=== PATIENT | male | born 1960 | race Caucasian/White ===

== ENCOUNTER 2019-10-26 15:29 | Outpatient (CLI) | payer OTHER, SELFPAY ==
--- NOTE | ~2019-10-26 | MR_ITS ---
EXAMINATION: MR lumbar spine wo con DATE: 10/26/2019 16:05 INDICATION: Lumbar radiculopathy with low back pain and left leg pain and weakness. TECHNIQUE: Magnetic resonance imaging (MRI) of the lumbar spine was performed without intravenous con trast. Sequences included sagittal T2-weighted FSE, sagittal T2-weighted FS FSE, sagittal T1-weighted FSE, and axial T2-weighted FSE. COMPARISON: None FINDINGS: 5 mm retrolisthesis L5 on S1. Vertebral body heights are normal. T1 hyperintense hemangioma at L3. Ot herwise normal marrow signal. Disc desiccation and mild disc height loss at T12-L1 and L1-L2. Mild di sc desiccation with annular fissure but without significant disc height loss at L5-S1. The conus medu llaris terminates at L1. There is normal signal in the caudal spinal cord. Paravertebral soft tissues are unremarkable. The following disc levels are specifically discussed: T12-L1: Small central disc protrusion. There is mild bilateral facet joint osteoarthritis. There is n o neural foraminal stenosis. There is minimal central canal stenosis. L1-L2: Small right foraminal disc protrusion. There is altered left and mild to moderate right facet joint osteoarthritis. There is mild right and minimal left neural foraminal stenosis. There is no naomi tral canal stenosis. L2-L3: The disc does not extend beyond the endplate margin. There is mild left and minimal right face t joint osteoarthritis. There is mild bilateral neural foraminal stenosis. There is no central canal stenosis. L3-L4: The disc does not extend beyond the endplate margin. There is hypertrophy of the ligamentum fl avum. There is mild left and moderate right facet joint osteoarthritis. There is mild bilateral neura l foraminal stenosis. There is mild central canal stenosis. L4-L5: The disc does not extend beyond the endplate margin. There is hypertrophy of the ligamentum fl avum. There is severe bilateral facet joint osteoarthritis. There is moderate bilateral neural forami nal stenosis. There is mild central canal stenosis as well as mild narrowing of the left and right la teral recesses. L5-S1: Central to left foraminal zone disc protrusion. There is mild left and mild to moderate right facet joint osteoarthritis. There is mild to moderate right and moderate left neural foraminal stenos is. There is no central canal stenosis. IMPRESSION: 1. Mild to moderate lumbar spondylosis. Reviewed, dictated and finalized at location A.
== END 2019-10-26 15:30 ==
PROVIDERS: Visit Provider Chiropractor
DX: M47.26 Other spondylosis with radiculopathy, lumbar region (principal)
CPT/HCPCS: 72148

== ENCOUNTER 2022-03-01 13:00 | Outpatient (CLI) | payer OTHER, SELFPAY ==
--- NOTE | ~2022-03-01 | CT_ITS ---
EXAMINATION: CT abdomen wo/w con INDICATION: Adrenal cortical hormone abnormality TECHNIQUE: Computed tomographic images of the abdomen were obtained prior to then following the admin istration of 100 cc of Omnipaque 350 intravenous contrast. The dose-length product (DLP) was 3515.38 mGy-cm. Automated exposure control and iterative reconstruction technique were employed. COMPARISON: None available FINDINGS: Minimal dependent atelectasis is present in the lung bases. The heart size is normal. There are changes of prior cardiac surgery. Mild bilateral gynecomastia is noted. The liver, spleen, pancr eas, and gallbladder are normal. No adrenal mass is identified. There is a 3 mm nonobstructing stone of the left kidney. There is a 10 mm stone in the proximal left ureter causing moderate hydroureteron ephrosis. The right kidney is unremarkable. There are no pathologically enlarged abdominal lymph node s. There is no free intraperitoneal gas or evidence of bowel obstruction. There is moderate lumbar sp ondylosis. IMPRESSION: 1. 10 mm obstructing stone in the left proximal ureter causing moderate hydroureteronephrosis. Urolog ic evaluation is recommended. 2. No adrenal mass identified. 3. Nonobstructing left nephrolithiasis. These findings and recommendations were discussed with Violeta in the office of Dr. Teresa Ambriz at 11 20 hours on 03/04/2022. Reviewed, dictated and finalized at location L. [employer] IMPRESSION: 1. 10 mm obstructing stone in the left proximal ureter causing moderate hydrour eteronephrosis. Urologic evaluation is recommended. 2. No adrenal mass identified. 3. Nonobstructing left nephrolithiasis. These findings and recommendations were discussed with Violeta in the office of Dr. Teresa Ambriz at 1120 hours on 03/04/2022.
--- NOTE | ~2022-03-01 | MR_ITS ---
MRI of the brain Clinical History: Abnormal pituitary function test Technique: Axial and sagittal T1-weighted images were acquired. These were followed by axial T2-weigh simón, diffusion weighted, gradient, and FLAIR images. Thin cut coronal and sagittal T1-weighted imagin g was performed through the sella turcica. Following intravenous administration of 20 cc MultiHance g adolinium, T1-weighted fat-sat imaging was performed through the brain in the axial and coronal plane s. Thin cut coronal dynamic T1-weighted postcontrast imaging was also performed through the sella tur cica in the coronal and sagittal planes. Findings: No acute infarct, intracranial hemorrhage, or mass lesion. Minimal chronic white matter danae nges noted in the periventricular white matter bilaterally. Ventricles and subarachnoid spaces are unremarkable. Orbits are unremarkable. Paranasal sinuses and m astoids are clear. Major intracranial flow voids are intact. Sagittal midline structures are intact. No abnormality of the pituitary gland evident. No sellar/supr asellar mass. IMPRESSION: No significant abnormality seen. No pituitary lesion or sellar/suprasellar mass identified. Reviewed, dictated and finalized at location M. [employer]
[2022-03-01 14:33] LABS: Estimated Glomerular Filt Rate > 60
== END 2022-03-01 13:01 | disposition home or self-care (01) ==
PROVIDERS: Visit Provider Internal Medicine Endocrinology, Diabetes & Metabolism
DX: R89.1 Abnormal level of hormones in specimens from other organs, systems and tissues (principal); N20.0 Calculus of kidney
CPT/HCPCS: 70553; 74170; A9577; Q9967

== ENCOUNTER 2022-04-21 15:37 | Outpatient (CLI) | payer OTHER, SELFPAY ==
--- NOTE | ~2022-04-21 | US_ITS ---
EXAMINATION: US renal BI DATE: 04/21/2022 16:10 INDICATION: KIDNEY STONE TECHNIQUE: Multiple grayscale and Doppler ultrasound images of the kidneys were obtained. COMPARISON: CT 03/01/22. FINDINGS: The right kidney measures 12.8 x 7.6 x 7.0 cm. The left kidney measures 12.6 x 7.4 x 5.9 cm. The kidn eys demonstrate normal parenchymal echogenicity. 3 mm punctate focus in the left inferior pole, likel y corresponding to one of the two stones detected in the prior CT. There is no hydronephrosis. The bl adder is mildly thickened, with normal bilateral jets. IMPRESSION: Mild bladder wall thickening, possibly due to outlet compromise. Left nephrolithiasis. Otherwise unr emarkable renal sonogram findings. Reviewed, dictated and finalized at location K. [employer] IMPRESSION: Mild bladder wall thickening, possibly due to outlet compromise. Left nephrolit hiasis. Otherwise unremarkable renal sonogram findings.
== END 2022-04-21 15:38 | disposition home or self-care (01) ==
PROVIDERS: Visit Provider Urology
DX: N20.0 Calculus of kidney (principal)
CPT/HCPCS: 76775

== ENCOUNTER 2022-07-13 18:59 | Emergency (ER) | payer OTHER, SELFPAY ==
[2022-07-13] VITALS (16 sets, daily range): BP systolic 119–176; BP diastolic 66–80; PULSE 89–102; RESP 9–18; TEMP 36.8; O2SAT 96–100
[2022-07-13 20:34] LABS: Glucose Point of Care 310 mg/dl (65-105)
[2022-07-13 20:35] LABS: Basophils Percent Auto 0.3 % (0.2-1.2); Eosinophils Absolute Auto 0.1 K/mm3 (0-0.3); Eosinophils Percent Auto 0.9 % (0-4.4); Hemoglobin 12.2 g/dL (14.0-18.0); Immature Granulocyte Absolute 0.02 K/mm3 (0.00-0.031); Immature Granulocyte Percent A 0.3 % (0-0.5); Lymphocytes Absolute Auto 2.12 K/mm3 (0.9-3.2); Lymphocytes Percent Auto 28.5 % (18.3-44.2); Mean Corpuscular Hemoglobin 29.5 pg (26-34); Mean Corpuscular Volume 89.4 fl (80-100); Mean Platelet Volume 9.2 fl (7.4-10.4); Monocytes Absolute Auto 0.7 K/mm3 (0.1-0.6); Monocytes Percent Auto 9.5 % (2.6-8.5); Neutrophils Absolute Auto 4.5 K/mm3 (1.3-6.7); Neutrophils Percent Auto 60.5 % (45.5-73.1); Platelet Count Result 215 k/mm3 (150-375); Red Blood Count 4.14 M/mm3 (4.6-6.20); Red Cell Distribution Width 14.2 % (11.5-14.5); White Blood Count 7.5 K/mm3 (4.5-10.0)
[2022-07-13] MEDS: CLINDAMYCIN 600 MG/D5W 50 ML 600 MG/50 ML PIGGYBACK 100 MG IVPB (20:44)
[2022-07-13 20:50] LABS: Alanine Aminotransferase 28 U/L (6-50); Albumin Level 2.5 g/dL (3.5-5.1); Alkaline Phosphatase 69 U/L (38-126); Anion Gap 7 mmol/L (8-16); Aspartate Amino Transferase 39 U/L (17-59); Bilirubin,Total 0.3 mg/dL (0.2-1.3); Blood Urea Nitrogen 21 mg/dL (9-20); Calcium 6.4 mg/dL (8.4-10.2); Carbon Dioxide 18 mmol/L (22-30); Chloride 114 mmol/L (98-107); Estimated CRCL calculation 118 ml/min; Estimated Glomerular Filt Rate > 60; Glucose 217 mg/dL (65-110); Potassium 2.6 mmol/L (3.4-5.0); Sodium 139 mmol/L (137-145)
[2022-07-13] MEDS: POTASSIUM CHLORIDE 20 MEQ PACKET (FOR LIQUID) 40 MEQ PO (20:57)
--- NOTE | 2022-07-13 21:03 | ED.GENADULT ---
HPI - General Adult General Chief complaint: Skin/Abscess/Foreign Body Stated complaint: spider bite Time Seen by Provider: 07/13/22 19:54 History of Present Illness HPI narrative: 61-year-old male presented to the emergency department for evaluation of a wound to the right lower leg that he states has been worsening over the past 2 days. Patient does have a prior history of cellulitis. Patient is not currently taking any antibiotics. Denies any associated nausea vomiting diarrhea fevers weakness or shortness of breath. Related Data Allergies Allergy/AdvReac Type Severity Reaction Status Date / Time No Known Allergies Allergy Mild Verified 07/13/22 19:04 Review of Systems Review of Systems: All systems reviewed & are unremarkable except as noted in HPI and below Exam Narrative: APPEARANCE: Well appearing, no pain, no distress, well-nourished. HEAD: normocephalic, atraumatic. EYES: PERRLA/EOMI, conjunctivae clear. NOSE: Normal no drainage RESPIRATORY: Airway patent, respirations nonlabored. Clear to auscultation bilaterally, no rales, rhonchi, wheezing. CARDIOVASCULAR: Regular rate and rhythm without murmurs rubs or gallops. ABDOMINAL: Soft, nontender, nondistended, normal bowel sounds MUSCULOSKELETAL: Moves all extremities. Strength/ROM intact, No edema, No calf tenderness. NEURO: Alert. Cranial nerves II through XII intact. Good gait. Good coordination SKIN: Erythema of the right lower extremity consistent with cellulitis, no abscess, no purulent discharge. Course Course Emergency Course: [age]-year-old male presented to the ED for evaluation of lower extremity infection. Rash is consistent with cellulitis. Patient was started on IV clindamycin in the emergency department. Patient was also provided clindamycin for home. Patient potassium was low so he was treated with 40 mEq of p.o. potassium and 20 mEq of IV potassium. Patient was updated on the plan for treatment and on reasons to return to the emergency department. All questions and concerns were addressed and patient was comfortable to plan for discharge and close follow-up. At time of signout patient is receiving his IV potassium. Vital Signs Vital signs: Vital Signs Temperature 98.2 F 07/13/22 19:01 Pulse Rate 102 H 07/13/22 19:01 Respiratory Rate 18 07/13/22 19:01 Blood Pressure 176/80 H 07/13/22 19:01 Pulse Oximetry 99 05/07/23 19:01 Temperature 98.2 F 07/13/22 19:01 Pulse Rate 89 07/13/22 23:21 Respiratory Rate 14 07/13/22 23:21 Blood Pressure 119/66 07/13/22 23:21 Pulse Oximetry 98 07/13/22 23:21 Medical Decision Making Vital Signs Vital Signs: Vital Signs Temperature 98.2 F 07/13/22 19:01 Pulse Rate 102 H 07/13/22 19:01 Respiratory Rate 18 07/13/22 19:01 Blood Pressure 176/80 H 07/13/22 19:01 Pulse Oximetry 99 07/13/22 19:01 Temperature 98.2 F 07/13/22 19:01 Pulse Rate 89 07/13/22 23:21 Respiratory Rate 14 07/13/22 23:21 Blood Pressure 119/66 07/13/22 23:21 Pulse Oximetry 98 07/13/22 23:21 Lab Data Lab results reviewed: Yes I reviewed the patient's lab results. 07/13/22 20:28 07/13/22 20:28 Labs: Lab Results 07/13/22 07/13/22 Range/Units 20:28 20:53 WBC 7.5 (4.5-10.0) K/mm3 RBC 4.14 L (4.6-6.20) M/mm3 Hgb 12.2 L (14.0-18.0) g/dL Hct 37.0 L (42.0-52.0) % MCV 89.4 (80-100) fl MCH 29.5 (26-34) pg MCHC 33.0 (32-36) g/dl RDW 14.2 (11.5-14.5) % Plt Count 215 (150-375) k/mm3 MPV 9.2 (7.4-10.4) fl Immature Gran % (Auto) 0.3 (0-0.5) % Neut % (Auto) 60.5 (45.5-73.1) % Lymph % (Auto) 28.5 (18.3-44.2) % J[place] % (Auto) 9.5 H (2.6-8.5) % Eos % (Auto) 0.9 (0-4.4) % Baso % (Auto) 0.3 (0.2-1.2) % Lymph # (Auto) 2.12 (0.9-3.2) K/mm3 Jerauld # (Auto) 0.7 H (0.1-0.6) K/mm3 Eos # (Auto) 0.1 (0-0.3) K/mm3 Baso # (Auto) 0.0 (0.0-0.1) K/mm3 Abs Immat Gran (auto) 0
[2022-07-13] MEDS: KCL 20 MEQ/SW 100 ML 100 ML 50 MEQ IVPB (21:18)
== END 2022-07-13 23:23 | disposition home or self-care (01) ==
PROVIDERS: Emergency Provider Emergency Medicine
DX: L03.115 Cellulitis of right lower limb (principal); E87.6 Hypokalemia
CPT/HCPCS: 36415; 80053; 82948; 85025; 96365; 96366; 96367; 99284; A9270; J3480

== ENCOUNTER → 2022-10-31 14:23 | Outpatient (CLI) | payer OTHER, SELFPAY ==
--- NOTE | ~2022-10-31 | XR_ITS ---
XR abdomen/kub 1V 10/31/2022 14:44 INDICATION: Ureteral stone TECHNIQUE: KUB COMPARISON: None FINDINGS: Bowel gas pattern is normal. There is no evidence of free air, mass, organomegaly, ascites or obstruction. No abnormal calculi are seen. The bones appear intact. There are pelvic phlebolith s. Moderate lumbar spondylosis. IMPRESSION: 1: No acute abdominal abnormality identified. Reviewed, dictated and finalized at location B.
== END ==
PROVIDERS: PCP Urology; Visit Provider Urology
DX: N20.0 Calculus of kidney (principal)
CPT/HCPCS: 74018

== ENCOUNTER 2023-08-27 15:05 | Outpatient (CLI) | payer OTHER, SELFPAY ==
--- NOTE | ~2023-08-27 | CT_ITS ---
EXAMINATION: CT abdomen wo/w con DATE: 08/27/2023 16:00 INDICATION: Tung's syndrome. TECHNIQUE: Computed tomography (CT) of the abdomen was performed without and with 100 mL Omnipaque 35 0 intravenous contrast. Automated exposure control and iterative reconstruction technique were employ ed. The dose-length product was 2377.74 mGy-cm. COMPARISON: Abdomen CT 03/01/2022 FINDINGS: The visualized portions of lung bases and show minimal atelectasis. No pleural effusion. Th e heart size is normal. There are coronary artery calcifications. No pericardial effusion. There are changes of median sternotomy. The liver, gallbladder, spleen, pancreas, and adrenal glands are normal . There is a 2 mm stone in right kidney. There is a 3 mm stone in left kidney. There are no dilated l oops of bowel. There is mild chronic anterior wedging of multiple lower thoracic vertebral bodies. Th ere is mild thoracic and lumbar spondylosis. There are bridging endplate osteophytes at multiple leve ls in the thoracic spine, consistent with diffuse idiopathic skeletal hyperostosis (DISH). IMPRESSION: 1. Normal adrenal glands. Reviewed, dictated and finalized at location A. IMPRESSION: 1. Normal adrenal glands.
[2023-08-27 15:33] LABS: Estimated Glomerular Filt Rate 48
== END 2023-08-27 15:06 ==
PROVIDERS: PCP Family Medicine; Visit Provider Internal Medicine Endocrinology, Diabetes & Metabolism
DX: E24.9 Cushing's syndrome, unspecified (principal)
CPT/HCPCS: 74170; Q9967

== ENCOUNTER 2024-10-08 09:09 | Outpatient (CLI) | payer OTHER, SELFPAY ==
--- NOTE | ~2024-10-08 | US_ITS ---
Limited Abdominal Sonogram: Real-time sonographic imaging of the right upper quadrant was performed. Clinical History: Abnormal LFTs Findings: The liver appears echogenic, with no evidence of mass lesion or bile duct dilatation. Live r measures 20.7 cm in length. Main portal vein demonstrates normal direction of flow. The gallbladder is well distended, and appears normal with no evidence of gallstone or wall thickening. The common b ile duct measures 6 mm. The visualized pancreas, aorta, and IVC are unremarkable. Impression: Diffuse fatty infiltration of the liver, with associated hepatomegaly. Reviewed, dictated and finalized at location . Impression: Diffuse fatty infiltration of the liver, with associated hepatomegaly.
== END 2024-10-08 09:10 | disposition home or self-care (01) ==
PROVIDERS: PCP Family Medicine; Visit Provider Internal Medicine Endocrinology, Diabetes & Metabolism
DX: R79.89 Other specified abnormal findings of blood chemistry (principal); K76.0 Fatty (change of) liver, not elsewhere classified
CPT/HCPCS: 76705